=== PATIENT | female | born 1970 | race Caucasian/White ===

== ENCOUNTER 2020-10-04 23:43 | Emergency (ER) | payer BC ==
[~2020-10-04] VITALS: Ht 177.8 cm; Wt 95.5 kg
[~2020-10-04 23:43] MED LIST: CLEOCIN HCL300 MG PO; PERCOCET 325 MG1 TA2 PO; TOPROL XL 50MG50 MG PO; ULTRAM 50MG TAB50 MG PO
[2020-10-04 23:47] VITALS: TEMP 98.2
[2020-10-05 00:07] LABS: BASO # 0.1 (0.0-0.2); BASO % 0.6 % (0.0-2.0); EOS # 0.2 (0.0-0.7); EOS % 1.8 % (0-4.0); GRAN # 5.2 (1.4-6.5); GRAN % 58.8 % (42.2-75.2); HEMATOCRIT 39.3 % (37.0-47.0); HEMOGLOBIN 13.7 g/dl (12.5-16.0); LYMPH # 2.4 (1.2-3.4); LYMPH % 26.9 % (20.0-51.0); MEAN CELL VOLUME 91 fl (80.0-100.0); MEAN CORPUSCULAR HEMOGLOBIN 32 pg (27.0-31.0); MEAN CORPUSCULAR HGB CONC 35 g/dl (33.0-37.0); MEAN PLATELET VOLUME 11.7 fl (7.4-10.4); MONO % 11.7 % (1.7-9.3); PLATELET COUNT 239 K/mm3 (130-400); RED BLOOD COUNT 4.34 M/mm3 (4.10-5.30); REDCELL DISTRIBUTION WIDTH-CV 12.1 % (11.5-14.5)
[2020-10-05 00:19] LABS: ALANINE AMINOTRANSFERASE 24 U/L (4-34); ALBUMIN 4.3 gm/dL (3.5-5.0); ALKALINE PHOSPHATASE 90 U/L (50-136); ANION GAP 11 mmol/L (7-16); AST,SGOT 29 U/L (15-37); BILIRUBIN,TOTAL 0.5 mg/dL (0.0-1.0); BLOOD UREA NITROGEN 22 mg/dL (7-17); CALCIUM 9.2 mg/dL (8.4-10.2); CARBON DIOXIDE 22 mmol/L (22-30); CHLORIDE 104 mmol/L (98-107); CREATININE, serum 0.84 (0.52-1.25); GLUCOSE 114 mg/dL (74-106); POTASSIUM 3.5 mmol/L (3.4-5.0); SODIUM 137 mmol/L (137-145); TOTAL PROTEIN 7.2 gm/dL (6.4-8.2)
[2020-10-05 00:31] LABS: TROPONIN-I < 0.012 ng/mL (0.000-0.035)
[2020-10-05 01:23] LABS: COLLECTION METHOD CLEAN CATCH
[2020-10-05 01:36] LABS: PH 5 (5-8); SQUAMOUS EPITHELIAL None Seen /hpf; URINE APPEARANCE Clear; URINE BACTERIA Rare /hpf; URINE BILIRUBIN Negative (NEGATIVE); URINE BLOOD 1+ (NEGATIVE); URINE COLOR Colorless; URINE GLUCOSE Negative (NEGATIVE); URINE KETONE Negative (NEGATIVE); URINE LEUKOCYTE ESTERASE Negative (NEGATIVE); URINE NITRATE Negative (NEGATIVE); URINE PROTEIN(semi-quant) Negative (NEGATIVE); URINE RBC 0-2 /hpf; URINE UROBILINOGEN Negative (NEGATIVE)
[2020-10-05 03:39] VITALS: BP 117/78; PULSE 78
== END 2020-10-05 03:52 | disposition home or self-care (01) ==
LOC: COL.ER 23:43
PROVIDERS: Nurse Practitioner Primary Care
DX: I48.91 Unspecified atrial fibrillation (principal); I10 Essential (primary) hypertension; Z88.0 Allergy status to penicillin; Z88.1 Allergy status to other antibiotic agents; Z88.2 Allergy status to sulfonamides
CPT/HCPCS: J7030

== ENCOUNTER 2020-10-14 06:57 | Day surgery (SDC) | payer BC ==
[2020-10-14 07:43] LABS: HEMATOCRIT 40.8 % (37.0-47.0); HEMOGLOBIN 14.1 g/dl (12.5-16.0); MEAN CELL VOLUME 92 fl (80.0-100.0); MEAN CORPUSCULAR HEMOGLOBIN 32 pg (27.0-31.0); MEAN CORPUSCULAR HGB CONC 35 g/dl (33.0-37.0); MEAN PLATELET VOLUME 12.2 fl (7.4-10.4); PLATELET COUNT 267 K/mm3 (130-400); RED BLOOD COUNT 4.45 M/mm3 (4.10-5.30); REDCELL DISTRIBUTION WIDTH-CV 12.1 % (11.5-14.5)
[2020-10-14 07:48] VITALS: BP 113/82; PULSE 66; TEMP 98.1
[2020-10-14 07:48] LABS: INR 1.6 (0.8-3.0); PROTHROMBIN TIME 18.2 SECONDS (9.7-12.8)
[2020-10-14 08:04] LABS: CALCIUM 9.5 mg/dL (8.4-10.2); CREATININE, serum 0.81 (0.52-1.25); POTASSIUM 3.8 mmol/L (3.4-5.0)
[2020-10-14] MEDS ORDERED: ELIQUIS 5MG PO (08:16)
[2020-10-14] MEDS ORDERED: PREMARIN 0.60.625 M1 PO (08:17)
[2020-10-14] MEDS ORDERED: CARDIZEM CD 18180 MG PO (08:17)
[2020-10-14] MEDS ORDERED: FLONASEALLERGY NS (08:18)
[2020-10-14] MEDS ORDERED: ALLEGRA 180MG180 MG PO (08:18)
[2020-10-14 09:46] VITALS: BP 101/76; PULSE 58
[2020-10-14 10:00] VITALS: BP 111/75; PULSE 54
[2020-10-14] MEDS ORDERED: TOPROL XL 25MG25 MG PO (10:03)
[2020-10-14] MEDS ORDERED: TAMBOCOR50 MG PO (10:04)
[2020-10-14 10:10] VITALS: BP 110/88; PULSE 54
[2020-10-14 10:20] VITALS: BP 124/86; PULSE 54
[2020-10-14 10:30] VITALS: BP 106/82; PULSE 55
--- NOTE | 2020-10-14 10:56 | NUR ---
Discharge instructions given to pt.pt verbalizes understanding.INT removed,catheter tip intact.Pt escorted out via wheelchair by this nurse.
== END 2020-10-14 12:48 | disposition home or self-care (01) ==
LOC: COL.CAR 06:57
PROVIDERS: Internal Medicine Adult Congenital Heart Disease
DX: I48.19 Other persistent atrial fibrillation (principal); I08.1 Rheumatic disorders of both mitral and tricuspid valves; I10 Essential (primary) hypertension; Z82.3 Family history of stroke; Z79.51 Long term (current) use of inhaled steroids; Z88.1 Allergy status to other antibiotic agents; Z88.2 Allergy status to sulfonamides; Z88.3 Allergy status to other anti-infective agents
CPT/HCPCS: J2704

== ENCOUNTER → 2020-12-11 | Outpatient (CLI) | payer BC ==
[~2020-12-11] MED LIST changes: +ALLEGRA 180MG180 MG PO; +CARDIZEM CD 18180 MG PO; +ELIQUIS 5MG PO; +FLONASEALLERGY NS; +PREMARIN 0.60.625 M1 PO; +TAMBOCOR50 MG PO; +TOPROL XL 25MG25 MG PO
== END ==
LOC: COL.LAB 13:28
DX: Z01.812 Encounter for preprocedural laboratory examination (principal); Z20.822 Contact with and (suspected) exposure to COVID-19

== ENCOUNTER 2021-10-24 09:17 | Emergency (ER) | payer BC ==
[~2021-10-24] VITALS: Ht 177.8 cm; Wt 88.6 kg
[2021-10-24 09:28] VITALS: TEMP 97.7
[2021-10-24 09:42] LABS: BASO # 0.1 K/mm3 (0.0-0.2); BASO % 0.8 % (0.0-2.0); EOS # 0.1 K/mm3 (0.0-0.7); GRAN # 3.1 K/mm3 (1.4-6.5); HEMATOCRIT 43.3 % (37.0-47.0); HEMOGLOBIN 15.1 g/dl (12.5-16.0); LYMPH # 1.9 K/mm3 (1.2-3.4); LYMPH % 31.4 % (20.0-51.0); MEAN CELL VOLUME 89 fl (80.0-100.0); MEAN CORPUSCULAR HEMOGLOBIN 31 pg (27-31); MEAN CORPUSCULAR HGB CONC 35 g/dl (33.0-37.0); MEAN PLATELET VOLUME 12.7 fl (7.4-10.4); MONO # 0.8 K/mm3 (0.1-0.6); MONO % 13.8 % (1.7-9.3); PLATELET COUNT 225 K/mm3 (130-400); RED BLOOD COUNT 4.88 M/mm3 (4.10-5.30); REDCELL DISTRIBUTION WIDTH-CV 12.6 % (11.5-14.5)
[2021-10-24 09:59] LABS: ALBUMIN 4.3 gm/dL (3.5-5.0); BILIRUBIN,TOTAL 0.8 mg/dL (0.2-1.2); CALCIUM 9.3 mg/dL (8.4-10.2); CREATININE, serum 0.81 mg/dL (0.57-1.11); POTASSIUM 3.9 mmol/L (3.5-4.5)
[2021-10-24] MEDS ORDERED: PREMARIN 0.60.625 M1 PO (09:59)
[2021-10-24 10:05] LABS: TROPONIN-I 0.013 ng/mL (0.00-0.033)
[2021-10-24 10:45] VITALS: BP 113/93; PULSE 93
[2021-10-24] MEDS ORDERED: CARDIZEM120 MG PO (10:55)
== END 2021-10-24 11:04 | disposition home or self-care (01) ==
LOC: COL.ER 09:17
PROVIDERS: Student in an Organized Health Care Education/Training Program
DX: I48.91 Unspecified atrial fibrillation (principal)

== ENCOUNTER 2021-10-28 07:46 | Day surgery (SDC) | payer BC ==
[~2021-10-28] VITALS: Ht 177.8 cm; Wt 91.4 kg
[~2021-10-28 07:46] MED LIST changes: +CARDIZEM120 MG PO
[2021-10-28] MEDS ORDERED: ESTRACE 1MG1 MG/TAB PO (08:11)
[2021-10-28] MEDS ORDERED: ELIQUIS 5MG PO (08:11)
[2021-10-28] MEDS ORDERED: TOPROL XL 25MG25 MG PO ×2 (08:12→11:00)
[2021-10-28 08:27] LABS: HEMATOCRIT 37.9 % (37.0-47.0); MEAN CELL VOLUME 89 fl (80.0-100.0); MEAN CORPUSCULAR HEMOGLOBIN 31 pg (27-31); MEAN CORPUSCULAR HGB CONC 34 g/dl (33.0-37.0); MEAN PLATELET VOLUME 12.5 fl (7.4-10.4); PLATELET COUNT 186 K/mm3 (130-400); RED BLOOD COUNT 4.25 M/mm3 (4.10-5.30); REDCELL DISTRIBUTION WIDTH-CV 13.2 % (11.5-14.5)
[2021-10-28 08:39] LABS: CALCIUM 8.8 mg/dL (8.4-10.2); CREATININE, serum 0.78 mg/dL (0.57-1.11); INR 1.2 (0.8-3.0); POTASSIUM 3.8 mmol/L (3.5-4.5)
[2021-10-28 08:41] VITALS: BP 116/91; PULSE 85
[2021-10-28 10:15] VITALS: BP 112/79; PULSE 67
[2021-10-28 10:30] VITALS: BP 123/92; PULSE 60
[2021-10-28 10:45] VITALS: BP 125/92; PULSE 61
[2021-10-28 11:00] VITALS: BP 131/98; PULSE 57
[2021-10-28] MEDS ORDERED: TAMBOCOR50 MG PO (11:01)
--- NOTE | 2021-10-28 11:17 | NUR ---
DC instructions reviewed with pt and , both express understanding. Pt has tolerated PO fluids without issue. She has slight dizziness with position change upon sitting up on edge of bed but this resolves quickly. She is steady transferring from bed to wheelchair, and then to and from restroom. INT DC'd with catheter intact. She is assisted out to 's car by wheelchair.
== END 2021-10-28 11:17 | disposition home or self-care (01) ==
LOC: COL.CAR 07:46
PROVIDERS: Internal Medicine Adult Congenital Heart Disease
DX: I48.19 Other persistent atrial fibrillation (principal); I48.0 Paroxysmal atrial fibrillation; I08.1 Rheumatic disorders of both mitral and tricuspid valves; I11.9 Hypertensive heart disease without heart failure; Z79.899 Other long term (current) drug therapy; Z79.01 Long term (current) use of anticoagulants
CPT/HCPCS: J2704

== ENCOUNTER → 2021-12-01 | Outpatient (CLI) | payer BC ==
[~2021-12-01] MED LIST changes: +ESTRACE 1MG1 MG/TAB PO
== END ==
LOC: MC.RAD 13:30
DX: Z12.31 Encounter for screening mammogram for malignant neoplasm of breast (principal)

== ENCOUNTER 2024-01-30 05:27 | Day surgery (SDC) | payer BC ==
[~2024-01-30] VITALS: Ht 177.8 cm; Wt 80.0 kg
[2024-01-30] VITALS (14 sets, daily range): BP systolic 102–126; BP diastolic 66–88; PULSE 60–79; TEMP 97.8–98.5
[~2024-01-30 05:27] MED LIST changes: +Famotidine 20 MG TAB PO SCH; +LR 1,000 ML IV SCH; +Meclizine 25 MG TAB PO SCH
[2024-01-30] MEDS ORDERED: Gabapentin 100 MG CAP PO SCH (06:00)
[2024-01-30] MEDS ORDERED: Acetaminophen 500 MG TAB PO SCH ×2 (06:00→07:59)
[2024-01-30] MEDS ORDERED: MOUNJARO2.5 MG/0.5 SQ (06:08)
[2024-01-30] MEDS ORDERED: TOPROL XL 25MG25 MG PO (06:09)
[2024-01-30] MEDS ORDERED: TAMBOCOR50 MG PO (06:10)
[2024-01-30] MEDS ORDERED: ESTRACE 1MG1 MG/TAB PO (06:11)
[2024-01-30] MEDS ORDERED: Lidocaine PF 2% (20 MG/ML) 5 ML VIAL ONE ×2 (06:49→06:52)
[2024-01-30] MEDS ORDERED: Midazolam 2 MG/2 ML VIAL ONE (06:50)
[2024-01-30] MEDS ORDERED: Rocuronium 50 MG/5 ML Multi-Dose VIAL ONE ×2 (06:50→09:14)
[2024-01-30] MEDS ORDERED: fentaNYL 50 MCG/ML 2 ML VIAL ONE (06:50)
[2024-01-30] MEDS ORDERED: Succinylcholine PF 200 MG/10 ML SYRINGE IV ONE (06:50)
[2024-01-30] MEDS ORDERED: NS 10 ML IV ONE (06:51)
[2024-01-30] MEDS ORDERED: dexAMETHasone 10 MG/ML VIAL ONE (06:51)
[2024-01-30] MEDS ORDERED: Ondansetron 4 MG/2 ML VIAL ONE (06:51)
[2024-01-30] MEDS ORDERED: oxyCODONE 5 MG TAB PO PRN (07:00)
[2024-01-30] MEDS ORDERED: Ondansetron 4 MG/2 ML VIAL IV PRN ×2 (07:00→10:30)
[2024-01-30] MEDS ORDERED: Morphine 4 MG/ML VIAL IV PRN (07:00)
[2024-01-30] MEDS ORDERED: Naloxone 0.4 MG/ML VIAL IV PRN (07:00)
[2024-01-30] MEDS ORDERED: COLACE 100100 MG/CAP PO (07:04)
[2024-01-30] MEDS ORDERED: NORCO 325 MG-51 TAB PO (07:04)
[2024-01-30] MEDS ORDERED: Ketorolac 15 MG/ML VIAL IV SCH (08:00)
[2024-01-30] MEDS ORDERED: LR 1,000 ML IV SCH (09:00)
[2024-01-30] MEDS ORDERED: Glycopyrrolate 0.2 MG/ML 1 ML VIAL ONE (09:06)
[2024-01-30] MEDS ORDERED: ePHEDrine 50 MG/ML VIAL ONE (09:07)
[2024-01-30] MEDS ORDERED: HYDROmorphone 2 MG/1 ML VIAL ONE (09:31)
[2024-01-30 09:41] LABS: BASO % 0.4 % (0.0-2.0); EOS % 1.7 % (0.0-4.0); GRAN # 1.6 K/mm3 (1.4-6.5); GRAN % 66.8 % (42.2-75.2); LYMPH # 0.5 K/mm3 (1.2-3.4); LYMPH % 21.4 % (20.0-51.0); MEAN CELL VOLUME 95 fl (80.0-100.0); MEAN CORPUSCULAR HGB CONC 35 g/dl (33.0-37.0); MEAN PLATELET VOLUME 11.7 fl (7.4-10.4); MONO # 0.2 K/mm3 (0.1-0.6); MONO % 9.7 % (1.7-9.3); PLATELET COUNT 78 K/mm3 (130-400); RED BLOOD COUNT 1.52 M/mm3 (4.10-5.30); REDCELL DISTRIBUTION WIDTH-CV 12.1 % (11.5-14.5)
[2024-01-30 09:44] LABS: ALANINE AMINOTRANSFERASE 13 U/L (0-55); ALKALINE PHOSPHATASE 58 U/L (40-150); ANION GAP 9 mmol/L (7-16); AST,SGOT 18 U/L (5-34); BLOOD UREA NITROGEN 14 mg/dL (10-20); CALCIUM 8.4 mg/dL (8.4-10.2); CHLORIDE 111 mEq/L (98-107); CREATININE, serum 0.72 mg/dL (0.57-1.11); GLUCOSE 141 mg/dL (70-99); POTASSIUM 3.9 mEq/L (3.5-4.5); SODIUM 139 mEq/L (136-145); TOTAL PROTEIN 4.9 g/dl (6.2-8.1)
[2024-01-30 09:48] LABS: BILIRUBIN,TOTAL < 0.1 mg/dL (0.2-1.2)
[2024-01-30 10:08] LABS: HEMATOCRIT 14.5 % (37.0-47.0); MEAN CORPUSCULAR HEMOGLOBIN 33 pg (27-31)
[2024-01-30 10:11] LABS: MEAN CELL VOLUME 93 fl (80.0-100.0); MEAN CORPUSCULAR HEMOGLOBIN 32 pg (27-31); MEAN CORPUSCULAR HGB CONC 35 g/dl (33.0-37.0); MEAN PLATELET VOLUME 11.8 fl (7.4-10.4); PLATELET COUNT 157 K/mm3 (130-400); RED BLOOD COUNT 3.05 M/mm3 (4.10-5.30)
[2024-01-30 10:12] LABS: HEMATOCRIT 28.2 % (37.0-47.0)
[2024-01-30 10:16] LABS: HEMOGLOBIN 9.9 g/dl (12.5-16.0)
[2024-01-30] MEDS ORDERED: fentaNYL 50 MCG/ML 1 ML SYRINGE/VIAL [PACU/SDC ONLY] IV PRN (10:30)
[2024-01-30] MEDS ORDERED: HYDROmorphone 1 MG/1 ML SYRINGE [PACU/SDC ONLY] IV PRN (10:30)
[2024-01-30] MEDS ORDERED: hydrALAZINE 20 MG/ML 1 ML VIAL IV PRN (10:30)
[2024-01-30] MEDS ORDERED: Phenylephrine 10 MG/ML VIAL ONE (10:41)
[2024-01-30] MEDS ORDERED: Gabapentin 100 MG CAP PO ONE (10:59)
[2024-01-30] MEDS ORDERED: Topical Skin Adhesive 1 EACH (1 ML) TOP ONE (11:06)
[2024-01-30 11:43] LABS: HEMATOCRIT 35.2 % (37.0-47.0); HEMOGLOBIN 12.3 g/dl (12.5-16.0)
--- NOTE | 2024-01-30 12:15 | NUR ---
arrived to room 349 per bed from PACU awake and alert but drowsy, IV infusing per dial-a-flow at 150ml/hr, room air O2 sat is 97%, lerma cath patent draining clear yellow urine, 7 abdominal incisions/port sites are CD&I, open to air, at bedside
--- NOTE | 2024-01-30 12:30 | NUR ---
resting between checks, full assessment completed, see interventions for further info
--- NOTE | 2024-01-30 12:45 | NUR ---
c/o pain /10 to upper mid incision, medicated with roxicodone 5mg 1 tab, taking sips of water and tolerates well
--- NOTE | 2024-01-30 14:00 | NUR ---
rests between checks, remains at bedside, continues to c/o some discomfort and given scheduled tylenol, also c/o some queeziness and given elizabeth crackers per her request
--- NOTE | 2024-01-30 15:00 | NUR ---
continues to c/o some pain, asked when she could have something again and told her it would be a while, offered IV medication and she declines this, asked if there was anything else and told her not at this time but if needed will notify Dr Bermudez,
--- NOTE | 2024-01-30 16:00 | NUR ---
continues to c/o pain to uper midline lateral incision, states it is 7/10 and medicated with second roxicodone 5mg
--- NOTE | 2024-01-30 17:30 | NUR ---
is ready to order something to eat, instructed on doing this and verbalizes understanding
--- NOTE | 2024-01-30 17:38 | NUR ---
continues to c/o pain, medicated with roxicodne 5mg for 10mg in less than 3 hours
[2024-01-30 18:06] LABS: HEMOGLOBIN 11.5 g/dl (12.5-16.0)
[2024-01-30 18:07] LABS: HEMATOCRIT 32.7 % (37.0-47.0)
--- NOTE | 2024-01-30 18:47 | NUR ---
bedside shift report given to ALBA Pappas
--- NOTE | 2024-01-30 19:56 | NUR ---
Patient assessed at this time, see shift assessment, A/Ox4, reports pain to abdomen, PS of 7/10, denies the need for pain meds at this time, with 5 lap sites CDI, skin glued, with transverse incision skin glued CDI, with small midline incision skin glued CDI, with IV infusing well on left hand, LR at 75cc/hr, INT infusing well on right hand, with lerma to dependent drainage, not to agreeable to walk at this time, assisted her to get up at the side of the bed, was on the side of the bed for about 2 minutes and went back to bed, encouraged oral fluid intake, denies further needs, call light and personal items within reach, will continue to monitor.
[2024-01-31 00:22] LABS: HEMOGLOBIN 10.4 g/dl (12.5-16.0)
[2024-01-31 00:24] LABS: HEMATOCRIT 29.3 % (37.0-47.0)
[2024-01-31 01:19] VITALS: BP_SYST 104
--- NOTE | 2024-01-31 02:00 | NUR ---
Scheduled tylenol given, INT at this time, tolerating fluids fine.
[2024-01-31 03:29] VITALS: BP 106/68; PULSE 67; TEMP 98.4
[2024-01-31 05:09] VITALS: BP_SYST 106
[2024-01-31 08:03] LABS: HEMATOCRIT 28.8 % (37.0-47.0)
== END 2024-01-31 14:09 ==
LOC: SDCO 05:27 → SURG 13:06 → SDCO 01-31 14:09
PROVIDERS: Nurse Anesthetist, Certified Registered; Urology
DX: N99.3 Prolapse of vaginal vault after hysterectomy (principal); N36.42 Intrinsic sphincter deficiency (ISD); N39.46 Mixed incontinence; K68.3 Retroperitoneal hematoma; I95.9 Hypotension, unspecified; Z86.16 Personal history of COVID-19
CPT/HCPCS: OP; A4314; A9284; C1762; J0690; J1100; J1170; J2250; J2371; J2405; J2704; J3010; J7120; P9016

== ENCOUNTER 2024-07-05 09:30 | Day surgery (SDC) | payer BC ==
[~2024-07-05] VITALS: Ht 177.8 cm; Wt 76.5 kg
[~2024-07-05 09:30] MED LIST changes: +COLACE 100100 MG/CAP PO; -Famotidine 20 MG TAB PO SCH; +MOUNJARO2.5 MG/0.5 SQ; -Meclizine 25 MG TAB PO SCH; +NORCO 325 MG-51 TAB PO
[2024-07-05] MEDS ORDERED: Lidocaine PF 2% (20 MG/ML) 5 ML VIAL ONE (09:50)
[2024-07-05] MEDS ORDERED: Midazolam 2 MG/2 ML VIAL ONE (09:50)
[2024-07-05] MEDS ORDERED: fentaNYL 50 MCG/ML 2 ML VIAL ONE (09:50)
[2024-07-05] MEDS ORDERED: Glycopyrrolate 0.2 MG/ML 1 ML VIAL ONE (09:51)
[2024-07-05] MEDS ORDERED: Ondansetron 4 MG/2 ML VIAL ONE (09:51)
[2024-07-05] MEDS ORDERED: NS 10 ML IV ONE (09:51)
[2024-07-05] MEDS ORDERED: dexAMETHasone 10 MG/ML VIAL ONE (09:51)
[2024-07-05] MEDS ORDERED: Ibuprofen 600 MG TAB PO PRN (10:15)
[2024-07-05] MEDS ORDERED: Ondansetron 4 MG/2 ML VIAL IV PRN ×2 (10:15→12:00)
[2024-07-05] MEDS ORDERED: NEURONTIN300 MG/CAP PO (10:36)
[2024-07-05] MEDS ORDERED: Rocuronium 50 MG/5 ML Multi-Dose VIAL ONE (10:59)
[2024-07-05] MEDS ORDERED: NORCO 325 MG-51 TAB PO (11:04)
[2024-07-05 11:15] VITALS: BP 134/73; PULSE 70; TEMP 97.3
[2024-07-05] MEDS ORDERED: fentaNYL 50 MCG/ML 1 ML SYRINGE/VIAL [PACU/SDC ONLY] IV PRN (12:00)
[2024-07-05] MEDS ORDERED: Morphine 2 MG/1 ML VIAL [PACU/SDC ONLY] IV PRN (12:00)
[2024-07-05] MEDS ORDERED: HYDROmorphone 1 MG/1 ML SYRINGE [PACU/SDC ONLY] IV PRN (12:00)
[2024-07-05] MEDS ORDERED: Meperidine 50 MG/ML 1 ML VIAL IV PRN (12:00)
[2024-07-05] MEDS ORDERED: LR 1,000 ML IV ONE (12:16)
[2024-07-05 14:25] VITALS: BP 106/73; PULSE 68; TEMP 97.4
--- NOTE | 2024-07-05 14:25 | NUR ---
PATIENT RETURNED TO BAY 5 VIA CART, ALERT AND ORIENTED X3. RATES PAIN 6/10 TO ABDOMEN. THIS PAIN IS TOLERABLE FOR PATIENT. ABLE TO REST IN CART. DENIES NAUSEA AND SHORTNESS OF BREATH. BREATHING REGULAR AND UNLABORED ON ROOM AIR. SKIN WARM AND DRY. NURSE HANDOFF COMPLETED. VISUAL INSPECTION OF SURGICAL SITES WITH PACU NURSE. THREE BANDAIDS PRESENT TO LEFT SIDE OF ABDOMEN. ALL 3 ABDOMINAL BANDAIDS CLEAN, DRY AND INTACT. SURROUNDING SKIN INTACT. ABDOMINAL BINDER IN PLACE. SEE CHART FOR VITAL SIGNS. PATIENT HAD WATER. NO DYSPHAGIA. CALL LIGHT IN REACH.
[2024-07-05 14:30] VITALS: BP 104/74; PULSE 62
[2024-07-05 14:45] VITALS: BP 104/74; PULSE 57
--- NOTE | 2024-07-05 14:47 | NUR ---
PAIN REPORT 6/10 TO ABDOMEN. DESCRIBED CONSTANT ABDOMINAL PAIN. DISCUSSED PAIN MANAGEMENT OPTIONS WITH PATIENT AND FAMILY. SEE EMAR FOR NORCO ADMINISTERED. PATIENT HAD COSMO CRACKERS. CALL LIGHT IN REACH.
[2024-07-05 15:00] VITALS: BP 115/75; PULSE 62
--- NOTE | 2024-07-05 15:37 | NUR ---
1520: REPORT OF PAIN RELIEF (RATING 5/10) POST MEDICATION. PATIENT AMBULATED TO RESTROOM AND VOIDED WITHOUT DIFFICULTY (YELLOW/CLEAR). 1537: FOLLOWING AMBULATION, PATIENT REPORTED THAT HER PAIN HAD WORSENED. DISCUSSED PAIN MANAGEMENT OPTIONS. SEE EMAR FOR MOTRIN ADMINISTERED.
[2024-07-05 15:38] VITALS: BP 124/73; PULSE 55
--- NOTE | 2024-07-05 15:48 | NUR ---
1538: DISCHARGE TEACHING COMPLETED WITH PRINTED EDUCATION AND INSTRUCTIONS SENT HOME WITH PATIENT. FOLLOW UP APPOINTMENT DATE, TIME AND LOCATION COMMUNICATED TO PATIENT AND FAMILY. PATIENT VERBALIZED UNDERSTANDING OF EDUCATION. 1541: PATIENT SITTING ON EDGE OF CART. PATIENT REQUESTED TO BE DISCHARGED HOME STATING THAT SHE FELT "READY TO GO HOME". PAIN TOLERABLE FOR PATIENT. IV REMOVED. GAUZE AND COBAN PLACED OVER SITE. 1548: ABDOMINAL BINDER IN PLACE. NO VISIBLE INCISIONAL DRAINAGE. PATIENT THANKED NURSE FOR CARE AND WAS DISCHARGED HOME [facility].
== END 2024-07-05 15:48 | disposition home or self-care (01) ==
LOC: SDCO 09:30
DX: K43.2 Incisional hernia without obstruction or gangrene (principal)
CPT/HCPCS: C1781; J0690; J1100; J1171; J2250; J2405; J2704; J2795; J3010; J7120